=== PATIENT | female | born 1940 | race African-American/Black ===

== ENCOUNTER 2022-01-14 14:04 | Inpatient (IN) | payer MEDICARE, MEDICAID ==
[~2022-01-14] VITALS: Ht 165.1 cm; Wt 51.3 kg
[2022-01-15] MEDS ORDERED: FUROSEMIDE 40MG/4ML VIAL IV ONE (03:30)
[2022-01-15 04:06] LABS: BASOPHILS % 1.9 % (0.0-2.0); EOSINOPHILS % 2.5 % (0.0-5.0); HEMATOCRIT. 36.9 % (36.0-48.0); HEMOGLOBIN. 12.1 g/dL (12.0-16.0); LYMPHOCYTES % 33.3 % (20.0-50.0); MEAN CORPUSCULAR HEMOGLOBIN 28.3 pg (28.0-32.0); MEAN CORPUSCULAR VOLUME 86.4 fL (81.0-99.0); MEAN PLATELET VOLUME 7.5 fl (7.4-10.4); NEUTROPHILS % 55.3 % (40.0-76.0); PLATELET 500 x1000/uL (130-400); RED BLOOD CELL COUNT 4.27 mill/uL (4.2-5.4); RED CELL DISTRIBUTION WIDTH 16.1 % (11.6-14.6)
[2022-01-15 04:16] LABS: CHLORIDE 114 mEq/L (98-107)
[2022-01-15 13:14] VITALS: BP 142/71
[2022-01-15] MEDS ORDERED: TOPUD MT (13:27)
[2022-01-15] MEDS ORDERED: FAMO-135 MT (13:27)
[2022-01-15] MEDS ORDERED: AMLO10TA4 MT (13:27)
[2022-01-15] MEDS ORDERED: IPRATROPIUM/ALBUTEROL 0.5-3(2.5)MG/3ML NEB NEB PRN (14:30)
[2022-01-15] MEDS ORDERED: CLONIDINE 0.1MG TABLET PO PRN (14:30)
[2022-01-15] MEDS ORDERED: ONDANSETRON HCL 4MG/2ML INJ IV PRN (14:30)
[2022-01-15] MEDS ORDERED: ACETAMINOPHEN 325MG TABLET PO PRN (14:30)
[2022-01-15] MEDS: FUROSEMIDE 40MG/4ML VIAL IVP SCH (14:40)
[2022-01-15] MEDS: AMLODIPINE 10MG TABLET PO SCH (14:40)
[2022-01-15] MEDS ORDERED: INFLUENZA VACCINE IM SCH (15:00)
[2022-01-15] MEDS ORDERED: PNEUMOCOCCAL VACCINE IM SCH (15:00)
[2022-01-15 16:00] VITALS: BP 118/72
[2022-01-15] MEDS: ENOXAPARIN 40MG/0.4ML SYR SUBCUT SCH (16:30)
[2022-01-15] MEDS: METHOCARBAMOL 500MG TABLET PO SCH (18:45)
[2022-01-15] MEDS ORDERED: MORPHINE SULFATE 2 MG/ML CPJ (NOT FOR IM USE) IV PRN (18:45)
[2022-01-15] MEDS ORDERED: NALOXONE HCL 0.4MG/ML VIAL IV PRN (18:45)
[2022-01-15 20:00] VITALS: BP 110/64
[2022-01-15 21:02] LABS: CHLORIDE 116 mEq/L (98-107)
[2022-01-16] VITALS: BP 109/68
[2022-01-16 00:31] LABS: CREATINE KINASE 41 IU/L (26-192); CREATINE KINASE MB FRACTION < 1.0 ng/mL (0.5-3.6)
[2022-01-16 04:00] VITALS: BP 109/64
[2022-01-16] MEDS: FUROSEMIDE 40MG/4ML VIAL IVP SCH ×2 (04:20→15:41)
[2022-01-16 06:38] LABS: CHLORIDE 115 mEq/L (98-107)
[2022-01-16 06:39] LABS: BASOPHILS % 0.7 % (0.0-2.0); EOSINOPHILS % 2.2 % (0.0-5.0); HEMATOCRIT. 36.7 % (36.0-48.0); HEMOGLOBIN. 12.2 g/dL (12.0-16.0); LYMPHOCYTES % 26.4 % (20.0-50.0); MEAN CORPUSCULAR HEMOGLOBIN 28.2 pg (28.0-32.0); MEAN CORPUSCULAR VOLUME 84.5 fL (81.0-99.0); MEAN PLATELET VOLUME 7.8 fl (7.4-10.4); MONOCYTES % 5.7 % (2.0-8.0); PLATELET 492 x1000/uL (130-400); RED BLOOD CELL COUNT 4.34 mill/uL (4.2-5.4); RED CELL DISTRIBUTION WIDTH 15.6 % (11.6-14.6)
[2022-01-16 06:47] LABS: CREATINE KINASE 42 IU/L (26-192); CREATINE KINASE MB FRACTION < 1.0 ng/mL (0.5-3.6)
[2022-01-16 08:00] VITALS: BP 116/57
[2022-01-16] MEDS ORDERED: IOHEXOL-350 100 ML BOTTLE ONE (09:30)
[2022-01-16] MEDS: PANTOPRAZOLE SODIUM 40 MG/VIAL IV SCH (09:59)
[2022-01-16] MEDS: AMLODIPINE 10MG TABLET PO SCH (10:00)
[2022-01-16 12:00] VITALS: BP 97/52
[2022-01-16] MEDS: METHOCARBAMOL 500MG TABLET PO SCH (12:29)
[2022-01-16] MEDS: ENOXAPARIN 40MG/0.4ML SYR SUBCUT SCH (15:41)
[2022-01-16 16:01] VITALS: BP 101/56
[2022-01-16 20:00] VITALS: BP 117/67
[2022-01-17] VITALS: BP 107/57
[2022-01-17] MEDS: FUROSEMIDE 40MG/4ML VIAL IVP SCH ×2 (02:41→15:18)
[2022-01-17 04:00] VITALS: BP 102/61
[2022-01-17 08:00] VITALS: BP 107/62
[2022-01-17] MEDS: PANTOPRAZOLE SODIUM 40 MG/VIAL IV SCH (09:49)
[2022-01-17] MEDS: AMLODIPINE 10MG TABLET PO SCH (09:50)
[2022-01-17 12:00] VITALS: BP 109/53
[2022-01-17] MEDS: ENOXAPARIN 40MG/0.4ML SYR SUBCUT SCH (15:18)
[2022-01-17 16:00] VITALS: BP 103/53
[2022-01-17] MEDS ORDERED: HYDR-4001 MT (17:04)
[2022-01-17] MEDS ORDERED: LOSA1TAB34 MT (17:06)
[2022-01-17 17:22] VITALS: BP 103/53
[2022-01-18] MEDS ORDERED: FAMOTIDINE 20MG/2ML VIAL IV SCH (09:00)
== END 2022-01-17 18:04 | disposition home or self-care (01) | DRG 291 ==
LOC: ER 14:04 → 3WST 01-15 03:50 → EDBEDREQ 01-15 08:16 → EDBEDREQTM 01-15 08:16
PROVIDERS: ADMIT Internal Medicine; ATTEND Internal Medicine
DX: I11.0 Hypertensive heart disease with heart failure (principal); E43 Unspecified severe protein-calorie malnutrition; I50.31 Acute diastolic (congestive) heart failure; Z68.1 Body mass index [BMI] 19.9 or less, adult; K21.9 Gastro-esophageal reflux disease without esophagitis; F17.210 Nicotine dependence, cigarettes, uncomplicated; F32.A Depression, unspecified; G62.9 Polyneuropathy, unspecified; M19.90 Unspecified osteoarthritis, unspecified site; M25.571 Pain in right ankle and joints of right foot
CPT/HCPCS: 36415; 71045; 71275; 80048; 80053; 82550; 82553; 83735; 83880; 84484; 85025; 85379; 90686; 90732; 93005; 93306; 93970; 99285; C1893; C9113; J1650; J1940; Q9967